=== PATIENT | male | born 1980 | race Caucasian/White ===

== ENCOUNTER 2017-10-23 10:49 | Emergency (ER) | payer OTHER ==
[~2017-10-23] VITALS: Ht 180.3 cm; Wt 77.1 kg
[~2017-10-23 10:49] MED LIST: BACTRIM DS TAB1 EACH PO; NORCO 5-325 TA1 EAC1 PO
[2017-10-23 11:23] VITALS: BP 113/83
== END 2017-10-23 11:46 | disposition left against medical advice (07) ==
LOC: M.ERS 10:49
DX: T33.522A Superficial frostbite of left hand, initial encounter (principal); F17.200 Nicotine dependence, unspecified, uncomplicated; F10.99 Alcohol use, unspecified with unspecified alcohol-induced disorder; Z98.890 Other specified postprocedural states; Z88.4 Allergy status to anesthetic agent; X31.XXXA Exposure to excessive natural cold, initial encounter